=== PATIENT | female | born 1955 | race Caucasian/White ===

== ENCOUNTER 2017-05-19 | Emergency (ER) | payer OTHER, MEDICAID ==
[~2017-05-19] VITALS: Ht 157.5 cm; Wt 85.7 kg
[2017-05-19 00:05] VITALS: Ht 157.5 cm; Wt 85.7 kg
[2017-05-19 01:32] VITALS: BP 140/86
== END 2017-05-19 01:32 | disposition home or self-care (01) ==
LOC: ED
DX: M54.40 Lumbago with sciatica, unspecified side (principal)
CPT/HCPCS: J0780; J1200; J3010